=== PATIENT | female | born 1950 | race African-American/Black ===

== ENCOUNTER 2018-08-23 00:05 | Emergency (ER) | payer OTHER ==
[~2018-08-23] VITALS: Ht 165.1 cm; Wt 81.6 kg
[2018-08-23 00:10] VITALS: BP_SYST 113
[2018-08-23] MEDS ORDERED: METHOCARBAMOL 500 MG TABLET PO ONE (03:45)
[2018-08-23] MEDS ORDERED: KETOROLAC TROMETHAMINE 30 MG VIAL IM ONE (03:45)
[2018-08-23] MEDS ORDERED: METHOCARBAMOL 500 MG TABLET ONE (03:58)
[2018-08-23 04:00] VITALS: BP_SYST 113
== END 2018-08-23 04:00 | disposition home or self-care (01) ==
LOC: SED 00:05
DX: S39.012A Strain of muscle, fascia and tendon of lower back, initial encounter (principal); Z88.5 Allergy status to narcotic agent; V43.52XA Car driver injured in collision with other type car in traffic accident, initial encounter; Y93.89 Activity, other specified; Y92.410 Unspecified street and highway as the place of occurrence of the external cause; Y99.8 Other external cause status
CPT/HCPCS: 70450; 72125; 72131; 96374; 99284; J1885